=== PATIENT | male | born 1970 | race Two or more races ===

== ENCOUNTER 2019-10-03 06:40 | Day surgery (SDC) | payer OTHER ==
[2019-10-03] VITALS (10 sets, daily range): BP systolic 103–115; BP diastolic 65–75
[~2019-10-03] VITALS: Ht 172.7 cm; Wt 72.6 kg
[~2019-10-03 06:40] MED LIST: CELEBREX200 MG ORAL; GABAPENTIN100 MG ORAL
[2019-10-03] MEDS ORDERED: Lidocaine 1% MPF 10mg/ml 5ml ONE (08:00)
[2019-10-03] MEDS ORDERED: LR 1000ml ONE (08:00)
--- NOTE | 2019-10-03 08:08 | Pre-Procedure Note/Attestation ---
Pre-Procedure Note/Attestation Complete Prior to Procedure Planned Procedure: not applicable Procedure Narrative: colon Indications for Procedure Pre-Operative Diagnosis: screen Attestation I attest that I discussed the nature of the procedure; its benefits; risks and complications; and alternatives (and the risks and benefits of such alternatives ), prior to the procedure, with the patient (or the patient's legal solar manufacturer's representative). I attest that, if there was a reasonable possibility of needing a blood transfusion, the patient (or the patient's legal solar manufacturer's representative) was given the [facility] standardized written summary, pursuant to the Ziyad Rajesh Blood Safety Act ([place] Health and Safety Code # 1645, as amended). I attest that I re-evaluated the patient just prior to the surgery and that there has been no change in the patient's H&P, except as documented below: Jen Petersen MD Oct 03, 2019 08:08
--- NOTE | 2019-10-03 08:40 | Immediate Post-Op Evaluation ---
Immediate Post-Op Evalulation Immediate Post-Op Evalulation Procedure: colonscopy Date of Evaluation: Oct 03, 2019 Time of Evaluation: 08:39 IV Fluids: 500 Blood Pressure Systolic: 107 Blood Pressure Diastolic: 75 Pulse Rate: 50 Respiratory Rate: 14 O2 Sat by Pulse Oximetry: 100 Temperature (Fahrenheit): 98.5 Nausea: No Vomiting: No Complications none Patient Status: awake, reacts, patent Hydration Status: adequate Drug: none Flroinda Olea CRNA Oct 03, 2019 08:40
--- NOTE | 2019-10-03 08:42 | Anethesia Preoperative Eval ---
Anesthesia Pre-op PMH/ROS General Date of Evaluation: Oct 03, 2019 Time of Evaluation: 08:00 Anesthesiologist: victoria ASA Score: ASA 1 Mallampati Score Class I : Soft palate, uvula, fauces, pillars visible Class II: Soft palate, uvula, fauces visible Class III: Soft palate, base of uvula visible Class IV: Only hard plate visible Mallampati Classification: Class II Surgeon: dot Diagnosis: screening Surgical Procedure: Colonoscopy Anesthesia History: none Family History: no anesthesia problems Allergies: Coded Allergies: No Known Allergies (Unverified , 10/03/19) Medications: see eMAR Patient NPO?: Yes NPO Date: Oct 03, 2019 NPO Time: 00:01 Past Medical History Cardiovascular: Denies: HTN, CAD, CA, valve dz, arrhythmia, other Pulmonary: Denies: asthma, COPD, CURTIS, other Gastrointestinal/Genitourinary: Denies: GERD, CRI, ESRD, other Neurologic/Psychiatric: Denies: dementia, CVA, depression/anxiety, TIA, other Endocrine: Denies: DM, hypothyroidism, steroids, other HEENT: Denies: cataract (L), cataract (R), glaucoma, NIKOLSKI (L), NIKOLSKI (R), other Hematology/Immune: Denies: anemia, DVT, bleeding disorder, other Musculoskeletal/Integumentary: Denies: OA, RA, DJD, DDD, edema, other PMH Narrative: none PSxH Narrative: shoulder? Anesthesia Pre-op Phys. Exam Physician Exam Last Vital Signs Date Time Temp Pulse Resp B/P (MAP) Pulse Ox O2 Delivery O2 Flow Rate FiO2 10/03/19 07:04 Room Air 10/03/19 07:03 97.5 55 18 112/74 96 Constitutional: NAD Neurologic: CN 2-12 intact Cardiovascular: RRR Respiratory: CTA Gastrointestinal: S/NT/ND Airway Exam Mallampati Classification 2 Mallampati Score: Class II MO: full ROM: full Dentures: no upper, no lower Anesthesia Pre-op A/P Studies Pre-op Studies: EKG - sr Risk Assessment & Plan Assessment: covid neg Plan: mac Pre-Antibiotics Drug: none Florinda Olea CRNA Oct 03, 2019 08:42
--- NOTE | 2019-10-03 09:04 | Short Stay Surgery H&P ---
History of Present Illness History of Present Illness Chief Complaint see attached HPI James Duarte is a 49 year old male who was admitted on for Colon Screening Patient History Allergies: Coded Allergies: No Known Allergies (Unverified , 10/03/19) Medication History Scheduled Celecoxib* (Celebrex*), 200 MG ORAL DAILY, (Reported) Gabapentin* (Gabapentin*), 200 MG ORAL DAILY, (Reported) Physical Exam Vital Signs Last Vital Signs Date Time Temp Pulse Resp B/P (MAP) Pulse Ox O2 Delivery O2 Flow Rate FiO2 10/03/19 09:00 97.4 56 17 111/75 98 Room Air 10/03/19 08:45 6 Plan Attestation Are the patient's medical conditions optimized for surgery? Jen Petersen MD Oct 03, 2019 09:04
--- NOTE | 2019-10-03 09:05 | Endoscopy Procedure Note ---
Endoscopy Procedure Note General Indication for Procedure: screen Procedures Performed: colonoscopy Operative Findings/Diagnosis: mild tics Specimen: none Pt Tolerated Procedure Well: Yes Estimated Blood Loss: none Anesthesia Anesthesiologist: VITALIY Anesthesia: MAC Medications Medication Given: see anesthesia record Inserted Devices Implant(s) used?: Yes GI Core Measures 50 yrs or older w/o bx or poly: Yes 10yrs. F/U recommended: Yes If not recommended, why?: 18 years or older w/prev. colo: Yes <3yrs. since last colonoscopy: No Med reason:<3 yrs.: System Reason:<3 yrs.: Last colonoscopy >= to 3yrs: Yes Jen Petersen MD Oct 03, 2019 09:05
--- NOTE | 2019-10-03 09:06 | Brief Operative Note ---
Immediate Post Operative Note Operative Note Chief Complaint: screen Pre-op Diagnosis: screen Procedure: colon, screen Post-op Diagnosis: mild tics Surgeon: phillip Anesthesiologist: VITALIY Anesthesia: MAC Specimen: none Complications: none Fluids: per aneshesia Estimated Blood Loss: none Implant(s) used?: No Jen Petersen MD Oct 03, 2019 09:06
--- NOTE | 2019-10-03 10:12 | 48 Hour Post Anesthesia Eval ---
Post Anesthesia Evaluation Procedure: colonscopy Date of Evaluation: Oct 03, 2019 Time of Evaluation: 10:12 Blood Pressure Systolic: 111 0: 75 Pulse Rate: 51 Respiratory Rate: 14 O2 Sat by Pulse Oximetry: 98 Airway: patent Nausea: No Vomiting: No Hydration Status: adequate Cardiopulmonary Status: stable Mental Status/LOC: patient returned to baseline Post-Anesthesia Complications: none Follow-up care needed: N/A Florinda Olea CRNA Oct 03, 2019 10:12
--- NOTE | 2019-10-05 02:44 | Procedure Note ---
DATE OF PROCEDURE: 10/03/2019 GASTROENTEROLOGY PROCEDURE REPORT PROCEDURE: Colonoscopy. SURGEON: Arlen Kinsey D. ANESTHESIA: Please see the separate anesthesiologist notes for details. PRE-ENDOSCOPIC DIAGNOSIS: Screening colonoscopy. POST-ENDOSCOPIC DIAGNOSES: 1. Mild left-sided diverticulosis. 2. Normal terminal ileum mucosa and colonic mucosa otherwise. DESCRIPTION OF PROCEDURE: The procedure its risks, indications, alternatives, and possible complications were explained to the patient and informed consent was obtained. The patient was then sedated and a diagnostic colonoscope was introduced into the rectum after rectal exam was done and advanced to 10 cm into the terminal ileum. The colonoscope was then gradually withdrawn and the mucosa was examined carefully. Examination of the mucosa did not reveal any polyps or ulcers. There was some mild left-sided diverticulosis. Retroflexed view of rectum was unremarkable. The colonoscope was removed and the patient was sent to recovery in good condition. COMPLICATIONS: None. RECOMMENDATIONS: 1. High-fiber diet. 2. Follow up with primary physician. 3. Next colonoscopy in 10 years. Thank you for asking me to participate in the care of this patient. Jen Petersen M.D. DR: TIMUR JOB#: [id number] CC: Dr. Drummond
== END 2019-10-03 09:45 | disposition home or self-care (01) ==
LOC: GAS 06:40
DX: Z12.11 Encounter for screening for malignant neoplasm of colon (principal); K57.90 Diverticulosis of intestine, part unspecified, without perforation or abscess without bleeding
CPT/HCPCS: 45378; 94003; J2704; J7120; U0002; 94150